=== PATIENT | female | born 1945 | race Caucasian/White ===

== ENCOUNTER 2018-12-02 10:49 | Observation (INO) | payer OTHER ==
[~2018-12-02] VITALS: Ht 157.5 cm; Wt 72.9 kg
[2018-12-02 12:11] LABS: BASOPHILS % (AUTO) 0.6 % (0.0-5.0); EOSINOPHILS % (AUTO) 1.4 % (0.0-8.0); HEMATOCRIT 36.3 % (36-48); LYMPHOCYTES % (AUTO) 19.8 % (21.0-51.0); MEAN CORPUSCULAR HEMOGLOBIN 30.7 pg (27.0-33.0); MEAN CORPUSCULAR VOLUME 90.3 fL (79-99); MONOCYTES % (AUTO) 7.8 % (3.0-13.0); NEUTROPHILS % (AUTO) 70.4 % (40.0-77.0); PLATELET COUNT (AUTO) 319 K/uL (130-400); RED BLOOD CELL COUNT(AUTO) 4.02 MIL/uL (4.00-5.50); RED CELL DISTRIBUTION WIDTH 13.4 % (11.0-15.5); WHITE BLOOD COUNT (AUTO) 8.8 K/uL (4.8-10.8)
[2018-12-02 12:25] LABS: CREATININE 0.8 mg/dL (0.5-1.5)
[2018-12-02 12:32] LABS: ALBUMIN 4.1 g/dL (3.5-5.0); BILIRUBIN,TOTAL 0.4 mg/dL (0.2-1.0); TOTAL PROTEIN, SERUM 7.8 g/dL (6.0-8.3)
[2018-12-02 12:36] LABS: B-TYPE NATRIURETIC PEPTIDE 99 pg/mL (0-100)
[2018-12-02] MEDS ORDERED: HYDRALAZINE HCL 20 MG/ML VIAL IV PRN (14:15)
[2018-12-02] MEDS ORDERED: ACETAMINOPHEN 325 MG TAB PO PRN ×2 (14:15)
[2018-12-02] MEDS ORDERED: ONDANSETRON HCL 4 MG/2 ML VIAL IV PRN (14:15)
--- NOTE | 2018-12-02 15:30 | NUR ---
ADMISSION RECEIVED PT FROM ER, A&OX3, CALM COOPERATIVE AND DOES NOT APPEAR TO BE IN ANY DISTRESS NOR ANY NEURO DEFICITS PRESENT. NO FACIAL DROOP PRESENT. PERRLA, TONGUE MIDLINE, PT IS ABLE TO TOLERATE FLUIDS WITH NO THROAT CLEARING OR COUGH, PT DENIES PAIN, SOB, DIZZINESS OR NAUSEA. PT IS AMBULATORY, GAIT STEADY AND STRONG WITH STAND BY ASSIST. CALL LIGHT WITHIN REACH, BED ALARM ACTIVATED, PT INFORMED TO UTILIZED CALL LIGHT FOR ASSISTANCE.
[2018-12-02 17:31] VITALS: BP 140/72
[2018-12-02] MEDS ORDERED: CLONIDINE HCL 0.1 MG TABLET PO PRN (19:15)
[2018-12-02] MEDS ORDERED: MECLIZINE HCL 25 MG TABLET PO PRN (19:15)
[2018-12-02 19:34] VITALS: BP 154/72
[2018-12-02] MEDS: FAMOTIDINE/PF 20 MG/2 ML VIAL IV SCH (20:14)
[2018-12-02 23:37] VITALS: BP 149/85
[2018-12-03 03:54] VITALS: BP 143/74
[2018-12-03 07:42] VITALS: BP 121/71
[2018-12-03] MEDS: FAMOTIDINE/PF 20 MG/2 ML VIAL IV SCH ×2 (07:59→20:00)
[2018-12-03] MEDS: ENOXAPARIN SODIUM 40 MG/0.4 ML SYRINGE SQ SCH (07:59)
--- NOTE | 2018-12-03 08:00 | NUR ---
ASSESSMENT PT IS AAOX4 DENIES CP DENIES SOB DENIES NV NO COMPLAINTS. SITTING UPRIGHT IN BED, EATING BREAKFAST. CALL LIGHT WITHIN REACH. PENDING TO BRING MEDS.
[2018-12-03] MEDS ORDERED: [UNRECOGNIZED DRUG - OTHER] PO (08:58)
[2018-12-03] MEDS ORDERED: IRBE150T27 PO (08:58)
[2018-12-03] MEDS ORDERED: [UNRECOGNIZED DRUG - OTHER] PO (08:58)
--- NOTE | 2018-12-03 09:30 | NUR ---
HOME MEDS LISTED IN CPOE
--- NOTE | 2018-12-03 10:45 | NUR ---
DR BROOKE SALAMANCA SAW PATIENT, ORDERED FOR DR NIELSON CONSULT
[2018-12-03 11:57] VITALS: BP 121/69
--- NOTE | 2018-12-03 14:00 | NUR ---
DR NIELSON AWARE OF CONSULT STATES HE WILL SEE PATIENT TOMORROW
[2018-12-03 16:14] VITALS: BP 146/70
[2018-12-03 19:11] VITALS: BP 144/57
--- NOTE | 2018-12-03 21:00 | NUR ---
PT IN BED, FRIENDS AT BEDSIDE. AAOX3. PT ABLE TO GET UP WITH ASSIST. NO DISTRESS NOTED. NO PAIN. NO NEURO CHANGES. ABLE TO COMMUNICATE EFFECTIVELY. PT ONLY ASKING ABOUT HER MEDICATION THAT IS DUE AT THIS TIME. BM STATES LAST SATURDAY 2.17.
[2018-12-03 23:36] VITALS: BP 175/83
[2018-12-04 03:34] VITALS: BP 145/71
[2018-12-04] MEDS: ENOXAPARIN SODIUM 40 MG/0.4 ML SYRINGE SQ SCH (07:49)
[2018-12-04] MEDS: FAMOTIDINE/PF 20 MG/2 ML VIAL IV SCH (07:50)
--- NOTE | 2018-12-04 08:00 | NUR ---
ASSESSMENT PT IS AAOX4 DENIES CP DENIES SOB DENIES NV NO COMPLAINTS. SITTING UPRIGHT IN BED, EATING BREAKFAST. NO NEURO DEFICITS NOTED. CALL LIGHT WITHIN REACH. PENDING DR NIELSON TO ROUND.
[2018-12-04 08:01] VITALS: BP 143/71
--- NOTE | 2018-12-04 10:19 | NUR ---
DR NAGA SALAMANCA SAW PATIENT. RECOMMENDATIONS ORDERED TO CASE MANAGEMENT.
[2018-12-04 12:00] VITALS: BP 116/48
--- NOTE | 2018-12-04 15:49 | NUR ---
DR ELIZABETH ROUNDED ORDERED DC HOME
--- NOTE | 2018-12-04 15:49 | NUR ---
DISCHARGE TO HOME PATIENT AND FAMILY VERBALIZE DC INSTRUCTIONS UNDERSTANDING. AGREE TO TAKE HOME MEDICATIONS ORDERED, AGREE TO FOLLOW UP WITH IN [facility] OUTPATIENT. AGREE TO RETURN TO HOSPITAL IF PATIENT HAS SYNCOPE, WORSENING MEMORY, GAIT/WALKING CHANGES, ANY CHANGE IN NEURO STATUS. ALL QUESTIONS ANSWERED, PIV REMOVED CATH TIP INTACT. DOWN VIA WHEELCHAIR WITH SPOUSE TO VEHICLE.
== END 2018-12-04 15:55 | disposition home or self-care (01) ==
LOC: EDH 10:49 → EDHIP 14:14 → 2DH 17:22
PROVIDERS: ADMIT Internal Medicine; ATTEND Internal Medicine
DX: R55 Syncope and collapse (principal); G91.2 (Idiopathic) normal pressure hydrocephalus; G93.89 Other specified disorders of brain; I10 Essential (primary) hypertension; W18.30XA Fall on same level, unspecified, initial encounter; Y93.89 Activity, other specified; Y92.009 Unspecified place in unspecified non-institutional (private) residence as the place of occurrence of the external cause; Y99.8 Other external cause status
CPT/HCPCS: 36415; 70450; 71045; 80053; 82550; 83880; 84443; 84484; 85025; 93005; 93306; 93880; 96372 ×2; 96374; 96376 ×2; 97116 ×2; 97161; 99284; G0378 ×50; G8978; G8979; G8980; G8981; G8982; G8983; J1650 ×2; J3490 ×4